=== PATIENT | male | born 1965 | race Caucasian/White ===

== ENCOUNTER → 2017-02-16 | Outpatient (CLI) | payer OTHER | END | disposition home or self-care (01) | LOC: RADMRIMAIN 12:26 | PROVIDERS: ATTEND Orthopaedic Surgery | DX: Z53.9 Procedure and treatment not carried out, unspecified reason (principal); M25.552 Pain in left hip ==

== ENCOUNTER → 2017-07-26 | Outpatient (CLI) | payer OTHER ==
--- NOTE | 2017-07-26 19:50 | CONS ---
CONSULTATION DATE OF CONSULTATION: 07/26/2017 52-year-old gentleman has been evaluated in the sleep center for obstructive sleep apnea-hypopnea syndrome. HISTORY OF PRESENT ILLNESS SLEEP WAKE EVALUATION: Patient has been diagnosed with obstructive sleep apnea about 15 years ago. He was on treatment with BiPAP for several years, but then was not able to use it because the machine was noisy and his did not like it. SLEEP SCHEDULE: At the present time, his sleep schedule from around 9 to 10 pm until 6:30 or 7 am on working days and until 7:00 am on weekends. FALLING ASLEEP: He does have problem with falling asleep, although no TV in bedroom. DURING SLEEP: He snores and wakes up from sleep three times with 2 episodes of nocturia. Occasionally has dry mouth, restless legs. DURING THE DAY/SLEEP WAKE: In the morning, he wakes up tired, has difficulties paying attention, falling asleep during the day, has problems with memory, concentration, irritability, depression, claustrophobia, sexual dysfunction. [place] Sleepiness Scale is 9. PAST MEDICAL HISTORY: Positive for hypertension, hyperlipidemia. PAST SURGICAL HISTORY: Right index surgery in 1974. MEDICATIONS: 1. Amlodipine. 2. Losartan. 3. Metoprolol. 4. Some vitamin supplement. SOCIAL HISTORY: Negative for smoking. Alcohol consumption 1-2 beers per night. FAMILY HISTORY: Hypertension, heart problems, hyperlipidemia, arthritis, sleep apnea, snoring. REVIEW OF SYSTEMS: Awakenings from sleep, sleepiness during the day, snoring. PHYSICAL EXAM: A gentleman without distress. BP 179/73, HR 84, RR 16, height 6 foot and 3 inches, weight 303, BMI 37.8, oxygen saturation on room air 97%, temperature 98.0. Neck 18 inches in circumference. Evaluation of oropharynx showed tongue protrudes midline; moderately to extremely low position of soft palate. Short distance between soft palate and posterior pharyngeal wall. Restriction of nasal breathing bilaterally. Neck Supple, no JVD. Thyroid is not palpable. LUNGS Clear to percussion and to auscultation. Good air exchange. No wheezing or rhonchi. HEART S1, S2 regular. No murmurs, gallops, or rubs. ABDOMEN is slightly obese. Soft and nontender. Bowel sounds are present. No organomegaly appreciated. EXTREMITIES No clubbing or cyanosis. NEUROSURGERY SPINE PHYSICIAN Awake, alert, and oriented X3. Cranial nerves 2 to 7 intact. There is no fasciculation or atrophy. noted. No focal deficits observed. IMPRESSION: 1. History of obstructive sleep apnea-hypopnea syndrome diagnosed about 15 years ago. At the present time, patient continued to wake up from sleep and feels sleepy during the day. [place] Sleepiness Scale 9, but this is with significant amount of usage Caffeine. Extremely low position of soft palate. Obesity. Obstructive sleep apnea-hypopnea syndrome. 2. Obesity BMI 37.8. 3. Hypertension. 4. Hyperlipidemia. 5. Status post right index surgery in the past. 6. Alcohol consumption 2 beers per night. PLAN: 1. Polysomnography for evaluation of patient's breathing during sleep. 2. CPAP/BiPAP titration if sleep study confirms obstructive sleep apnea-hypopnea syndrome. 3. Preferable position during sleep on the side. 4. No driving if patient feels any sleepiness. Patient is aware of civil and criminal liability for unsafe driving. 5. I will see patient for follow up visit to explain results of testing and following plan. Thank you very much for referring this patient for consultation. Sincerely, Prashant Cerda MD, PhD, FAASM Diplomat of [place] [employer] [place] [employer] Operator of [facility] Christine MMODL / EZEKIELN: [id number] /
== END | disposition home or self-care (01) ==
LOC: SLEEP 14:03
PROVIDERS: ATTEND Internal Medicine
DX: G47.33 Obstructive sleep apnea (adult) (pediatric) (principal); E66.9 Obesity, unspecified; Z68.37 Body mass index [BMI] 37.0-37.9, adult; I10 Essential (primary) hypertension; E78.5 Hyperlipidemia, unspecified; Z98.890 Other specified postprocedural states; Z79.899 Other long term (current) drug therapy
CPT/HCPCS: 99211

== ENCOUNTER 2019-02-17 15:50 | Emergency (ER) | payer BC ==
[2019-02-17 15:58] VITALS: RESP 18
--- NOTE | 2019-02-17 16:22 | ED ---
General Adult HPI - General Chief complaint: Back Pain/Injury Stated complaint: Kidney stones Time Seen by Provider: 02/17/19 15:59 Source: patient Mode of arrival: ambulatory Limitations: no limitations - History of Present Illness Initial comments: Dictation was produced using [employer] dictation software. please excuse any grammatical, word or spelling errors. Chief Complaint: 53-year-old male with past medical history of hypertension and nephrolithiasis presents with left-sided flank pain. History of Present Illness: A 3-year-old male who has a history of nephrolithiasis. Patient states he's had 24 hours of left-sided flank pain. 2 years ago patient had a similar episode while he was in [place]. Patient travels for work. He had a CT showing 3 mm left-sided kidney stone. Patient reports that his symptoms lasted for 24 hours until the stone is passed. States today that he came to the emergency Department visits been 24 hours of him having this pain. Patient states the pain is constant sharp and located to the left flank. He does report intermittent episodes of increased intensity. Patient denies any hematuria. Denies any constitutional symptoms. Patient has had above symptoms of nausea vomiting diarrhea. The ROS documented in this emergency department record has been reviewed and confirmed by me. Those systems with pertinent positive or negative responses have been documented in the HPI. All other systems are other negative and/or noncontributory. PHYSICAL EXAM: General Impression: Alert and oriented x3, not in acute distress HEENT: Normocephalic atraumatic, extra-ocular movements intact, pupils equal and reactive to light bilaterally, mucous membranes moist. Cardiovascular: Heart regular rate and rhythm, S1&S2 audible, no murmurs, rubs or gallops Chest: Lungs clear to auscultation bilaterally, no rhonchi, no wheeze, no rales Abdomen: Bowel sounds present, abdomen soft, non-tender, non-distended, no organomegaly Musculoskeletal: Pulses present and equal in all extremities, no peripheral edema, no CVA tenderness Motor: no focal deficits noted Neurological: CN II-XII grossly intact, no focal motor or sensory deficits noted Skin: Intact with no visualized rashes Psych: Normal affect and mood ED course: 53-year-old male presents with left-sided flank pain. He reports that his symptoms are similar to her kidney stones he was diagnosed with 2 years ago. Vital signs upon arrival shows heart rate of 101, worse vital signs within acceptable limits. Patient is well-appearing and physical examination is unremarkable.Laboratory evaluation obtained. Mild leukocytosis of 11.3 likely secondary to stress. Metabolic panel shows potassium 5.4 with hemolysis. Rest of metabolic panel is unremarkable. Patient does have some slight elevation in his creatinine. Urinalysis is unremarkable. Abdominal and bladder ultrasound was obtained showing mild left-sided hydronephrosis possible 8 mm nonobstructing calculus. Patient given fluids and intravenous analgesics. Patient states that his pain is. But manageable. Patient otherwise clear for discharge. He is told to follow up with urology. Patient given urology referral information. Patient given by mouth analgesics. Advised to follow-up with urology. Return parameters discussed. - Related Data Home Medications Medication Instructions Recorded Confirmed Docusate [Colace] 200 mg PO DAILY 02/17/19 02/17/19 Hempworks 20 drops PO BID 02/17/19 02/17/19 Keto Bhb 2 tab PO HS 02/17/19 02/17/19 Keto Oil 1 tab PO HS 02/17/19 02/17/19 Losartan Potassium 100 mg PO HS 02/17/19 02/17/19 Metoprolol Tartrate [Lopressor] 50 mg PO HS 02/17/19 02/17/19 Rexazyte 1 tab PO DAILY 02/17/19 02/17/19 amLODIPine BESYLATE/BENAZEPRIL 1 cap PO DAILY 02/17/19 02/17/19 [Lotrel 10-40 MG] Previous Rx's Medication Instructions Recorded HYDROcodone/APAP 5-325MG [[facility] 1 tab PO Q6HR PRN 3 Days #12 tab 02/17/19 5-325] Allergies Allergy/AdvReac Type Severity Reaction Status Date / Time bee venom protein (honey bee) Allergy Anaphylaxis Verified 02/17/19 16:25 fire ant Allergy Rash/Hives Verified 02/17/19 16:25 Review of Systems ROS Statement: Those systems with pertinent positive or pertinent negative responses have been documented in the HPI. ROS Other: All systems not noted in ROS Statement are negative. Past Medical History Past Medical History: Hypertension History of Any Multi-Drug Resistant Organisms: None Reported Past Surgical History: Orthopedic Surgery Past Psychological History: No Psychological Hx Reported Smoking Status: Former smoker Past Alcohol Use History: Occasional Past Drug Use History: None Reported General Exam Limitations: no limitations Course Vital Signs 02/17/19 15:56 Temperature 97.3 F L Pulse Rate 101 H Respiratory 18 Rate Blood Pressure 141/80 O2 Sat by Pulse 98 Oximetry Medical Decision Making - Lab Data Result diagrams: 02/17/19 16:57 02/17/19 17:20 Lab Results 02/17/19 02/17/19 02/17/19 Range/Units 16:57 16:57 17:20 WBC 11.3 H (3.8-10.6) k/uL RBC 4.98 (4.30-5.90) m/uL Hgb 13.8 (13.0-17.5) gm/dL Hct 42.0 (39.0-53.0) % MCV 84.4 (80.0-100.0) fL MCH 27.8 (25.0-35.0) pg MCHC 32.9 (31.0-37.0) g/dL RDW 14.6 (11.5-15.5) % Plt Count 294 (150-450) k/uL Neutrophils % 79 % Lymphocytes % 11 % Monocytes % 6 % Eosinophils % 1 % Basophils % 0 % Neutrophils # 9.0 H (1.3-7.7) k/uL Lymphocytes # 1.3 (1.0-4.8) k/uL Monocytes # 0.7 (0-1.0) k/uL Eosinophils # 0.2 (0-0.7) k/uL Basophils # 0.0 (0-0.2) k/uL Sodium 138 (137-145) mmol/L Potassium 5.4 H (3.5-5.1) mmol/L Chloride 105 (98-107) mmol/L Carbon Dioxide 24 (22-30) mmol/L Anion Gap 9 mmol/L BUN 18 (9-20) mg/dL Creatinine 1.74 H (0.66-1.25) mg/dL Est GFR (CKD-EPI)AfAm 50 (>60 ml/min/1.73 sqM) Est GFR (CKD-EPI)NonAf 44 (>60 ml/min/1.73 sqM) Glucose 96 (74-99) mg/dL Calcium 9.6 (8.4-10.2) mg/dL Total Bilirubin 0.8 (0.2-1.3) mg/dL AST 34 (17-59) U/L ALT 42 (21-72) U/L Alkaline Phosphatase 50 (38-126) U/L Total Protein 7.9 (6.3-8.2) g/dL Albumin 4.9 (3.5-5.0) g/dL Lipase 139 (23-300) U/L Urine Color Yellow Urine Appearance Clear (Clear) Urine pH 6.5 (5.0-8.0) Ur Specific [place] 1.026 (1.001-1.035) Urine Protein Trace H (Negative) Urine Glucose (UA) Negative (Negative) Urine Ketones Negative (Negative) Urine Blood Negative (Negative) Urine Nitrite Negative (Negative) Urine Bilirubin Negative (Negative) Urine Urobilinogen <2.0 (<2.0) mg/dL Ur Leukocyte Esterase Negative (Negative) Disposition Clinical Impression: Kidney stone Disposition: HOME SELF-CARE Condition: Good Instructions (If sedation given, give patient instructions): Kidney Stones (ED) Prescriptions: HYDROcodone/APAP 5-325MG [[facility] 5-325] 1 tab PO Q6HR PRN 3 Days #12 tab PRN Reason: Severe Pain Is patient prescribed a controlled substance at d/c from ED?: No Referrals: Brody Vale MD [STAFF PHYSICIAN] - 1-2 days Benoit Dey MD [STAFF PHYSICIAN] - 1-2 days Time of Disposition: 18:21
[2019-02-17] MEDS ORDERED: SODIUM CHLORIDE 0.9% 1,000 ML IV STA (16:23)
[2019-02-17] MEDS ORDERED: KETOROLAC 30 MG/ML 1 ML VIAL IVP STA (16:23)
[2019-02-17 17:07] LABS: Basophils % (A) 0 %; Eosinophils # (A) 0.2 k/uL (0-0.7); Eosinophils % (A) 1 %; HGB 13.8 gm/dL (13.0-17.5); Lymphocytes # (A) 1.3 k/uL (1.0-4.8); Lymphocytes % (A) 11 %; MCH 27.8 pg (25.0-35.0); MCHC 32.9 g/dL (31.0-37.0); MCV 84.4 fL (80.0-100.0); Mean Platelet Volume 7.4; Monocytes # (A) 0.7 k/uL (0-1.0); Monocytes % (A) 6 %; Neutrophils % (A) 79 %; Platelet Count 294 k/uL (150-450); RBC 4.98 m/uL (4.30-5.90); RDW 14.6 % (11.5-15.5); WBC 11.3 k/uL (3.8-10.6)
[2019-02-17 17:08] LABS: Appearance,Urine Clear (Clear); Bilirubin,Urine Negative (Negative); Blood,Urine Negative (Negative); Color,Urine Yellow; Glucose,Urine (UA) Negative (Negative); Ketones,Urine Negative (Negative); Leukocyte Esterase,Urine Negative (Negative); Nitrite,Urine Negative (Negative); PH, Urine 6.5 (5.0-8.0); Protein,Urine Trace (Negative); Specific Gravity,Urine 1.026 (1.001-1.035); Urobilinogen,Urine <2.0 mg/dL (<2.0)
[2019-02-17 17:40] LABS: Albumin 4.9 g/dL (3.5-5.0); Calcium 9.6 mg/dL (8.4-10.2); Total Bilirubin 0.8 mg/dL (0.2-1.3); Total Protein 7.9 g/dL (6.3-8.2)
[2019-02-17 17:41] LABS: Potassium 5.4 mmol/L (3.5-5.1)
--- NOTE | 2019-02-17 17:58 | US ---
EXAMINATION TYPE: US kidneys/renal and bladder DATE OF EXAM: 02/17/2019 COMPARISON: NONE CLINICAL HISTORY: Pain. EXAM MEASUREMENTS: Right Kidney: 11.1 x 5. 5 x 5.7 cm Left Kidney: 11.9 x 6.3 x 5.9 cm Right Kidney: echogenic foci, ?small stone measuring 0.3 cm, no hydro Left Kidney: 0.8 x 0.6 x 0.8cm stone seen with mild hydro Bladder: wnl There is mild left-sided pyelocaliectasis. At mid pole level there is 8 mm shadowing hyperechoic focu s suspicious for calculus. No masses are identified in left kidney on images saved. The urinary denis dder is not greatly distended. Bilateral ureteral jets are not seen. No hydronephrosis in right kidn ey is evident. IMPRESSION: Mild left-sided hydronephrosis with possible additional 8 mm nonobstructing calculus. Suspect obstruc ting left ureter calculus. Correlate clinically.
--- NOTE | 2019-02-17 18:23 | ED ---
Medical Decision Making - Lab Data Result diagrams: 02/17/19 16:57 02/17/19 17:20 Lab Results 02/17/19 02/17/19 02/17/19 Range/Units 16:57 16:57 17:20 WBC 11.3 H (3.8-10.6) k/uL RBC 4.98 (4.30-5.90) m/uL Hgb 13.8 (13.0-17.5) gm/dL Hct 42.0 (39.0-53.0) % MCV 84.4 (80.0-100.0) fL MCH 27.8 (25.0-35.0) pg MCHC 32.9 (31.0-37.0) g/dL RDW 14.6 (11.5-15.5) % Plt Count 294 (150-450) k/uL Neutrophils % 79 % Lymphocytes % 11 % Monocytes % 6 % Eosinophils % 1 % Basophils % 0 % Neutrophils # 9.0 H (1.3-7.7) k/uL Lymphocytes # 1.3 (1.0-4.8) k/uL Monocytes # 0.7 (0-1.0) k/uL Eosinophils # 0.2 (0-0.7) k/uL Basophils # 0.0 (0-0.2) k/uL Sodium 138 (137-145) mmol/L Potassium 5.4 H (3.5-5.1) mmol/L Chloride 105 (98-107) mmol/L Carbon Dioxide 24 (22-30) mmol/L Anion Gap 9 mmol/L BUN 18 (9-20) mg/dL Creatinine 1.74 H (0.66-1.25) mg/dL Est GFR (CKD-EPI)AfAm 50 (>60 ml/min/1.73 sqM) Est GFR (CKD-EPI)NonAf 44 (>60 ml/min/1.73 sqM) Glucose 96 (74-99) mg/dL Calcium 9.6 (8.4-10.2) mg/dL Total Bilirubin 0.8 (0.2-1.3) mg/dL AST 34 (17-59) U/L ALT 42 (21-72) U/L Alkaline Phosphatase 50 (38-126) U/L Total Protein 7.9 (6.3-8.2) g/dL Albumin 4.9 (3.5-5.0) g/dL Lipase 139 (23-300) U/L Urine Color Yellow Urine Appearance Clear (Clear) Urine pH 6.5 (5.0-8.0) Ur Specific [place] 1.026 (1.001-1.035) Urine Protein Trace H (Negative) Urine Glucose (UA) Negative (Negative) Urine Ketones Negative (Negative) Urine Blood Negative (Negative) Urine Nitrite Negative (Negative) Urine Bilirubin Negative (Negative) Urine Urobilinogen <2.0 (<2.0) mg/dL Ur Leukocyte Esterase Negative (Negative) Disposition Clinical Impression: Kidney stone Disposition: HOME SELF-CARE Condition: Good Instructions (If sedation given, give patient instructions): Kidney Stones (ED) Prescriptions: Naproxen [Naprosyn] 500 mg PO Q12HR PRN #20 tab PRN Reason: Pain HYDROcodone/APAP 5-325MG [[place] 5-325] 1 tab PO Q6HR PRN 3 Days #12 tab PRN Reason: Severe Pain Is patient prescribed a controlled substance at d/c from ED?: Yes If prescribed controlled substance>3 days was MAPS reviewed?: Prescribed <3 Days Referrals: Brody Vale MD [STAFF PHYSICIAN] - 1-2 days Benoit Dey MD [STAFF PHYSICIAN] - 1-2 days Time of Disposition: 18:23
[2019-02-17 18:36] VITALS: BP 168/93; PULSE 93; TEMP 98.1
== END 2019-02-17 18:34 | disposition home or self-care (01) ==
LOC: EC 15:50
DX: N13.2 Hydronephrosis with renal and ureteral calculous obstruction (principal); I10 Essential (primary) hypertension; Z87.891 Personal history of nicotine dependence; Z79.899 Other long term (current) drug therapy; Z91.030 Bee allergy status; Z91.048 Other nonmedicinal substance allergy status
CPT/HCPCS: 36415; 80053; 83690; 85025; 81003; 76770; 99284; 96374; 96361; J1885

== ENCOUNTER 2019-05-09 10:57 | Inpatient (IN) | payer BC ==
[2019-05-09] MEDS ORDERED: NITROGLYCERIN SL TABS 0.4 MG TAB SUBLINGUAL STA ×2 (11:14→11:23)
[2019-05-09] MEDS ORDERED: HEPARIN SODIUM,PORCINE 5,000 UNIT/ML 1 ML VIAL IV STA (11:14)
[2019-05-09] MEDS ORDERED: ASPIRIN 81 MG PO STA (11:14)
[2019-05-09] MEDS ORDERED: ATORVASTATIN 80 MG TAB PO STA (11:17)
[2019-05-09] MEDS ORDERED: LIDOCAINE 1% INJ 10MG/ML (20 ML MDV) ONE (11:22)
[2019-05-09 11:31] LABS: HCT 41.2 % (39.0-53.0); HGB 13.7 gm/dL (13.0-17.5); MCH 27.4 pg (25.0-35.0); MCHC 33.3 g/dL (31.0-37.0); MCV 82.3 fL (80.0-100.0); Mean Platelet Volume 6.6; Platelet Count 324 k/uL (150-450); RDW 14.8 % (11.5-15.5)
[2019-05-09 11:35] LABS: ALT 38 U/L (21-72); AST 39 U/L (17-59); African American GFR (CKD) >90 (>60 ml/min/1.73 sqM); Albumin 5.2 g/dL (3.5-5.0); Alkaline Phosphatase 66 U/L (38-126); Anion Gap 14 mmol/L; Blood Urea Nitrogen 15 mg/dL (9-20); Calcium 10.4 mg/dL (8.4-10.2); Carbon Dioxide 22 mmol/L (22-30); Chloride 105 mmol/L (98-107); Glucose 104 mg/dL (74-99); Magnesium 2.5 mg/dL (1.6-2.3); Potassium 3.7 mmol/L (3.5-5.1); Sodium 141 mmol/L (137-145); Total Bilirubin 0.6 mg/dL (0.2-1.3); Total Protein 8.1 g/dL (6.3-8.2)
--- NOTE | 2019-05-09 11:35 | ED ---
Chest Pain HPI - General Chief Complaint: Chest Pain Stated Complaint: SOB, Chest Pain Time Seen by Provider: 05/09/19 11:00 Source: patient, RN notes reviewed Mode of arrival: ambulatory Limitations: no limitations - History of Present Illness Initial Comments: This is a 53-year-old male with a history of hypertension was a nonsmoker no personal history of heart or lung disease who about 1 hour prior to admission started developing midsternal 8/10 chest pain it was achy in nature associated with diaphoresis. He has no prior history of chest pain is a family history is noted. No nausea no vomiting no other modifying factors at this time MD Complaint: chest pain - Related Data Home Medications Medication Instructions Recorded Confirmed Losartan Potassium 100 mg PO HS 02/17/19 05/09/19 Metoprolol Tartrate [Lopressor] 50 mg PO HS 02/17/19 05/09/19 amLODIPine BESYLATE/BENAZEPRIL 1 cap PO DAILY 02/17/19 05/09/19 [Lotrel 10-40 MG] Allergies Allergy/AdvReac Type Severity Reaction Status Date / Time bee venom protein (honey bee) Allergy Anaphylaxis Verified 05/09/19 11:20 fire ant Allergy Rash/Hives Verified 05/09/19 11:20 Review of Systems ROS Statement: Those systems with pertinent positive or pertinent negative responses have been documented in the HPI. ROS Other: All systems not noted in ROS Statement are negative. EKG Findings - EKG Results: EKG: interpreted by HEIKE, sinus rhythm (EKG was done upon arrival showed a normal sinus rhythm 85 appear interval 148 QRS duration 84 QT since QTC 396/[address] elevation in leads V3 V4 V5 extending into V6) Past Medical History Past Medical History: Hypertension History of Any Multi-Drug Resistant Organisms: None Reported Past Surgical History: Orthopedic Surgery Past Psychological History: No Psychological Hx Reported Smoking Status: Never smoker Past Alcohol Use History: Occasional Past Drug Use History: None Reported General Exam - General Exam Comments Initial Comments: This is a well-developed well-nourished awake alert oriented 3 male Limitations: no limitations General appearance: alert, anxious, in distress Head exam: Present: atraumatic, normocephalic, normal inspection Eye exam: Present: normal appearance, PERRL, EOMI. Absent: scleral icterus, conjunctival injection, periorbital swelling ENT exam: Present: normal exam, mucous membranes moist Neck exam: Present: normal inspection. Absent: tenderness, meningismus, lymphadenopathy Respiratory exam: Present: normal lung sounds bilaterally. Absent: respiratory distress, wheezes, rales, rhonchi, stridor Cardiovascular Exam: Present: regular rate, normal rhythm, normal heart sounds. Absent: systolic murmur, diastolic murmur, rubs, gallop, clicks GI/Abdominal exam: Present: soft, normal bowel sounds. Absent: distended, tenderness, guarding, rebound, rigid Rectal exam: Present: deferred Extremities exam: Present: normal inspection, full ROM, normal capillary refill, other (Equal pulses bilaterally to the radial pulses and posterior tibial). Absent: tenderness, pedal edema, joint swelling, calf tenderness Back exam: Present: normal inspection Neurological exam: Present: alert, oriented X3, CN II-XII intact Psychiatric exam: Present: normal affect, normal mood, anxious Skin exam: Present: warm, intact, normal color, diaphoretic. Absent: rash Course Vital Signs 05/09/19 11:03 Temperature 98.7 F Pulse Rate 86 Respiratory 18 Rate Blood Pressure 168/115 O2 Sat by Pulse 100 Oximetry - Reevaluation(s) Reevaluation #1: 05/09/19 11:31 A STEMI alert was initiated. Dr. Jimenez and Dr. Salomon did come to the emergency department and examined patient. Patient was evaluated and taken to the [facility]. Reevaluation #2: 05/09/19 11:33 I did discuss the findings and the evaluation with the patient's was present she is informed of the [facility] the procedure to be done. Chest Pain MDM - MDM X-ray was done the patient to the emergency department nonspecific findings. Agent was taken to the [facility]. I did discuss case with Dr. Taylor who is covering for Dr. Simons. Critical Care Time Critical Care Time: Yes Critical Care Time: 31 minutes of critical care time includes initial presentation with history physical labs x-rays EKGs discussed with the cardiology who did come the emergency department. Discussed with the patient's review of old charting was available documentation the above discussion with the admitting physician. Disposition Clinical Impression: ST elevation myocardial infarction (STEMI), Chest pain Disposition: ADMITTED IP TO THIS HOSP Condition: Critical Referrals: Mike Siegel DO [Primary Care Provider] - 1-2 days
[2019-05-09] MEDS ORDERED: SODIUM CHLORIDE 0.9% 1,000 ML IV ONE (11:37)
[2019-05-09] MEDS ORDERED: NITROGLYCERIN SL TABS 0.4 MG TAB SUBLINGUAL ONE ×2 (11:43→11:44)
[2019-05-09] MEDS ORDERED: MIDAZOLAM (PF) 2 MG/2 ML VIAL IV ONE (11:44)
[2019-05-09] MEDS ORDERED: LIDOCAINE 1% INJ 10MG/ML (20 ML MDV) SQ ONE (11:46)
[2019-05-09] MEDS ORDERED: fentaNYL (PF) 50 MCG/ML 2 ML AMP ONE (11:50)
--- NOTE | 2019-05-09 11:50 | P.CRDCN ---
History of Present Illness Consult date: 05/09/19 Requesting physician: Mike Siegel Consult reason: chest pain Chief complaint: Chest pain History of present illness: His is a 53-year-old gentleman with history of hypertension, sleep apnea, nondiabetic, not a smoker, presented to the emergency room with symptoms of midsternal chest pressure and heaviness which she stated started approximately an hour before coming to the ER. Patient was quite diaphoretic ordered. According to the patient, he did have one episode of chest discomfort the night prior that seemed to last 10-15 minutes and dissipated. EKG on presentation to the emergency room showed a normal sinus rhythm with ST elevation/jpoint elevation noted in V3 to V6. Chest x-ray performed in the emergency room, results are pending. Blood pressure on arrival 168/115 with a heart rate in the 80s on room air, temperature 98.7. White blood cell count is normal, hemoglobin 13.7, platelet count 324. Sodium 141, potassium 3.7, BUN 15 and creatinine 1.0. Magnesium 2.5. Patient continued to have chest pain in the emergency room, he was given 2 sublingual nitroglycerin tablets, aspirin, Lipitor, and a 4000 bolus of heparin. Patient was advised to go directly to the cardiac catheterization lab to undergo an emergent cardiac catheterization. The risks and benefits were explained to the patient in detail. Past Medical History Past Medical History: Hypertension History of Any Multi-Drug Resistant Organisms: None Reported Past Surgical History: Orthopedic Surgery Past Psychological History: No Psychological Hx Reported Smoking Status: Never smoker Past Alcohol Use History: Occasional Past Drug Use History: None Reported Medications and Allergies Home Medications Medication Instructions Recorded Confirmed Type Losartan Potassium 100 mg PO HS 02/17/19 05/09/19 History Metoprolol Tartrate [Lopressor] 50 mg PO HS 02/17/19 05/09/19 History amLODIPine BESYLATE/BENAZEPRIL 1 cap PO DAILY 02/17/19 05/09/19 History [Lotrel 10-40 MG] Allergies Allergy/AdvReac Type Severity Reaction Status Date / Time bee venom protein (honey bee) Allergy Anaphylaxis Verified 05/09/19 11:20 fire ant Allergy Rash/Hives Verified 05/09/19 11:20 Physical Exam Vitals: Vital Signs Temp Pulse Resp BP Pulse Ox 05/09/19 11:03 98.7 F 86 18 168/115 100 Intake and Output 07/18/19 07/19/19 07/19/19 22:59 06:59 14:59 Other: Weight 136.078 kg PHYSICAL EXAMINATION: GENERAL: 43-year-old gentleman complaining of midsternal chest pressure and heaviness, diaphoretic at the time of my examination HEENT: Head is atraumatic, normocephalic. Pupils equal, round. Sclera anicteric. Conjunctiva are clear. Mucous membranes of the mouth are moist. Neck is supple. There is no elevated jugular venous pressure. No carotid bruit is heard. HEART EXAMINATION: Heart S1, S2 normal. No murmur or gallop heard. CHEST EXAMINATION: Lungs are clear to auscultation and precussion. No chest wall tenderness is noted on palpation or with deep breathing. ABDOMEN: Soft, nontender. Bowel sounds are heard. No organomegaly noted. EXTREMITIES: 2+ peripheral pulses with no evidence of peripheral edema and no calf tenderness noted. NEUROLOGIC patient is awake, alert and oriented 3 . . Results 05/09/19 11:19 05/09/19 11: Cardiac Enzymes 05/09/19 Range/Units 11: AST 39 (17-59) U/L CBC 05/09/19 Range/Units 11:19 WBC 7.0 (3.8-10.6) k/uL RBC 5.00 (4.30-5.90) m/uL Hgb 13.7 (13.0-17.5) gm/dL Hct 41.2 (39.0-53.0) % Plt Count 324 (150-450) k/uL Comprehensive Metabolic Panel 05/09/19 Range/Units 11:19 Sodium 141 (137-145) mmol/L Potassium 3.7 (3.5-5.1) mmol/L Chloride 105 (98-107) mmol/L Carbon Dioxide 22 (22-30) mmol/L BUN 15 (9-20) mg/dL Creatinine 1.02 (0.66-1.25) mg/dL Glucose 104 H (74-99) mg/dL Calcium 10.4 H (8.4-10.2) mg/dL AST 39 (17-59) U/L ALT 38 (21-72) U/L Alkaline Phosphatase 66 (38-126) U/L Total Protein 8.1 (6.3-8.2) g/dL Albumin 5.2 H (3.5-5.0) g/dL Intake and Output 05/08/19 05/09/19 05/09/19 22:59 06:59 14:59 Other: Weight 136.078 kg Patient Weight 05/10/19 06:59 Weight 136.078 kg 05/09/19 11:19 05/09/19 11:19 EKG Interpretations (text) EKG shows normal sinus rhythm with ST elevation noted in the anterior lateral leads. Assessment and Plan Plan: Assessment and plan #[address] elevation myocardial infarction #2 hypertension #3 sleep apnea Plan Patient was advised to go emergently to the cardiac catheterization lab, as and benefits were explained to the patient in detail, further recommendations will be based on these findings and the patient's clinical course. DNP note has been reviewed, I agree with a documented findings and plan of care. Patient was seen and examined.
[2019-05-09 11:51] LABS: Lymphocytes # (M) 2.31 k/uL (1.0-4.8); Monocytes # (M) 0.56 k/uL (0-1.0); Neutrophils # (M) 4.13 k/uL (1.3-7.7); Neutrophils % (M) 59 %; Nucleated Red Blood Cells 0 /100 WBC (0-0); Total Cells Counted 100
[2019-05-09] MEDS ORDERED: fentaNYL (PF) 50 MCG/ML 2 ML AMP IV ONE (11:52)
[2019-05-09 11:54] LABS: D-Dimer 0.36 mg/L FEU (<0.60); INR 0.9 (<1.2); Partial Thromboplastin Time 24.4 sec (22.0-30.0); Prothrombin Time 9.6 sec (9.0-12.0)
[2019-05-09] MEDS ORDERED: BIVALIRUDIN 250 MG in SODIUM CHLORIDE 0.9% 50 ML IV ONE ×2 (11:57→12:25)
[2019-05-09] MEDS ORDERED: BIVALIRUDIN BOLUS 250 MG/50 ML IV ONE (11:57)
--- NOTE | 2019-05-09 11:58 | XR ---
EXAMINATION TYPE: XR chest 1V portable DATE OF EXAM: 05/09/2019 COMPARISON: NONE HISTORY: Chest pain TECHNIQUE: Single frontal view of the chest is obtained. FINDINGS: There are overlying cardiac leads. Right hemidiaphragm is elevated. Patient is rotated. Th ere is no focal air space opacity, pleural effusion, or pneumothorax seen. The cardiac silhouette si ze is within normal limits. The osseous structures are intact. IMPRESSION: Suspect some elevation of the right hemidiaphragm, rotated exam. Follow-up as indicated.
[2019-05-09] MEDS ORDERED: NITROGLYCERIN 1000MCG/10ML SYRINGE INTRACORON ONE (12:04)
[2019-05-09 12:06] LABS: Creatine Kinase MB 7.6 ng/mL (0.0-2.4)
[2019-05-09] MEDS ORDERED: IOPAMIDOL-370 100ML BTL INJ ONE ×2 (12:06→12:29)
[2019-05-09 12:13] LABS: Troponin I 0.641 ng/mL (0.000-0.034)
[2019-05-09] MEDS ORDERED: niCARdipine Syringe (1,000 mcg/10 mL) INTRACORON ONE (12:13)
[2019-05-09] MEDS ORDERED: PRASUGREL 10 MG TAB ONE (12:35)
[2019-05-09] MEDS ORDERED: PRASUGREL 10 MG TAB PO ONE (12:39)
[2019-05-09] MEDS ORDERED: IOPAMIDOL-370 50ML BTL INJ ONE (12:44)
[2019-05-09] MEDS ORDERED: NITROGLYCERIN SL TABS 0.4 MG TAB SUBLINGUAL PRN (12:57)
[2019-05-09] MEDS ORDERED: ZOLPIDEM 5 MG TAB PO PRN (12:57)
[2019-05-09] MEDS ORDERED: RX INFO: IV CONTRAST WAS GIVEN 1 EACH MISC MISCELLANE PRN (12:57)
[2019-05-09] MEDS ORDERED: MAG HYDROX/AL HYDROX/SIMETH 30 ML CUP PO PRN (12:57)
[2019-05-09] MEDS ORDERED: ATROPINE SULFATE 0.1 MG/ML 10ML SYRINGE IV PRN (12:57)
[2019-05-09] MEDS: SODIUM CHLORIDE 0.9% 1,000 ML IV SCH (13:15)
[2019-05-09 13:31] LABS: Glucose,Whole Blood 113 mg/dL (75-99)
--- NOTE | 2019-05-09 13:47 | CC ---
CARDIAC CATHETERIZATION REPORT DATE OF SERVICE: 05/09/2019. PROCEDURE: 1. Left heart catheterization and coronary angiography. 2. PTCA and stenting of mid LAD with a drug-eluting stent performed in the setting of an acute myocardial infarction with ST elevation. Reperfusion accomplished in 65 minutes. PERFORMED BY: Dr. Alma Delia Palma. Moderate conscious sedation time was 55 minutes. The patient was administered Versed and fentanyl. His oxygen saturation, hemodynamics and EKG were monitored closely. CLINICAL INFORMATION: Mr. Bob Silva is a 53-year-old gentleman with known history of hypertension who sees Dr. Siegel in the outpatient setting. He presented to the hospital with chest pain, was seen and evaluated by Dr. Daniela Jimenez and Dr. Salomon. He had anterior ST elevation and also with inferior ST prominence. He was advised prompt cardiac catheterization and was brought to the cardiac laboratory courier expeditiously. PROCEDURE NOTE: Under local anesthesia and strict aseptic precautions, a 6-Estonian introducer was placed in the right femoral artery. I started off with a left Shawn catheter and noted that the patient had a significant mid LAD lesion with thrombus and sluggish flow in the distal LAD. I recommended intervention and proceeded to perform the PCI of LAD immediately. Following the LAD PCI, I checked the right coronary artery angiography and also LV pressures but did not perform LV gram. The sheath was taken out and Angio- Seal device used to secure hemostasis. The patient had discomfort in the groin after the Angio-Seal procedure, but that resolved quickly. Procedure was performed uneventfully. He tolerated the procedure well. Results were discussed with the patient and family. CARDIAC CATHETERIZATION FINDINGS: The left ventricular end-diastolic pressure was about 15 mmHg without any gradient across aortic valve. CORONARY ANGIOGRAPHY FINDINGS: RIGHT CORONARY ARTERY: This is a codominant vessel, has diffuse minor irregularities. No significant disease distally. It bifurcates into a PDA and PLV. PLV is smaller. PDA is larger. There is about a 30% to 40% narrowing involving the PDA branch as it comes off from the main RCA. Minor irregularities in the PLV system noted. LEFT MAIN CORONARY ARTERY: Short patent disease-free vessel that immediately bifurcates into LAD and circumflex. Left main has no significant disease. LEFT ANTERIOR DESCENDING CORONARY ARTERY: Good caliber vessel gives off a septal and diagonal branch. After the diagonal and septal branch, there is an eccentric 70% stenosis with haziness suggestive of thrombus. Beyond this, there is another area of narrowing and then the flow stops in the midportion without much antegrade flow and the entire vessel seems to be filled with thrombus. LEFT POSTERIOR CIRCUMFLEX CORONARY ARTERY: Technically a codominant vessel gives off a large obtuse marginal that runs laterally and then the distal circumflex continues as a posterolateral branch after giving off a left atrial circumflex branches. There are minor irregularities. No significant disease in the circumflex system. LEFT VENTRICULOGRAM: Left ventriculogram was not performed. FINAL IMPRESSION: This patient has a significant disease in the LAD with 2 areas of significant disease in the mid LAD and sluggish flow without much antegrade flow in the distal portion of the LAD which is the culprit vessel. IMPRESSION: 1. Left anterior descending artery has 2 areas of significant disease without much distal flow and a lot of thrombus with sluggish flow. 2. Circumflex and RCA are codominant vessels with minor diffuse disease. PDA branch of RCA has about a 40% narrowing. Circumflex has minor irregularities. Filling pressures are slightly elevated and there was no gradient across aortic valve. RECOMMENDATIONS: I recommended PCI of LAD and proceeded to perform this in the same setting. PCI PROCEDURE DETAILS: A standard left Shawn guide catheter was used to cannulate the left coronary artery. A run-through wire was used to cross the lesion. A 3.0 caliber Trek balloon of 12 mm length was used to pre-dilate the lesion. I then deployed an 18 mm long 3.5 caliber Xience stent in the mid lesion. The proximal portion of the lesion just after the diagonal branch was still evident, not covered by the initial stent. I therefore deployed another 3.5 caliber 8 mm stent and telescoped this into the previous stent. Excellent angiographic result was achieved. Distally, there was still some disease in the distal 1/4 of the LAD. I addressed this with a 2.25 caliber 12 mm Trek balloon and gave multiple inflations. The entire LAD opened with a good JOSÉ ANTONIO-3 flow. Excellent angiographic result was achieved, but the distal LAD appears to be diffusely diseased throughout, but the flow is still well preserved and there is no significant stenosis distally after opening it up with the balloon. There is diffuse disease in the distal half of the LAD, but the stented areas were widely patent with excellent angiographic result. The patient received 60 mg of Effient. Angiomax bolus and infusion were given as per protocol. Excellent angiographic result without complication was achieved and patient was sent to the room in a stable condition. Findings and results were discussed with the patient and family. ANEESH / EMILIANA: [id number] /
--- NOTE | 2019-05-09 14:25 | P.CRDCN ---
History of Present Illness History of present illness: Please see full dictation by nurse practitioner Patient presented with midsternal chest discomfort for about an hour prior to presentation Distantly uncomfortable and having ongoing pain ST elevation that looked like a J-point elevation from V32 V6 with very typical symptoms Likely mid LAD stenosis/occlusion History of hypertension, obesity, sleep apnea, Nondiabetic never smoker Plan Medical treatment and urgent coronary angiography today for acute ST elevation PR Past Medical History Past Medical History: Hypertension History of Any Multi-Drug Resistant Organisms: None Reported Past Surgical History: Orthopedic Surgery Past Psychological History: No Psychological Hx Reported Smoking Status: Never smoker Past Alcohol Use History: Occasional Past Drug Use History: None Reported Medications and Allergies Home Medications Medication Instructions Recorded Confirmed Type Losartan Potassium 100 mg PO HS 02/17/19 05/09/19 History Metoprolol Tartrate [Lopressor] 50 mg PO HS 02/17/19 05/09/19 History amLODIPine BESYLATE/BENAZEPRIL 1 cap PO DAILY 02/17/19 05/09/19 History [Lotrel 10-40 MG] Allergies Allergy/AdvReac Type Severity Reaction Status Date / Time bee venom protein (honey bee) Allergy Anaphylaxis Verified 05/09/19 11:20 fire ant Allergy Rash/Hives Verified 05/09/19 11:20 Physical Exam Vitals: Vital Signs Temp Pulse Resp BP Pulse Ox 05/09/19 14:00 77 16 134/81 97 05/09/19 13:45 79 12 125/77 97 05/09/19 13:30 75 14 121/74 97 05/09/19 13:15 80 16 131/74 96 05/09/19 13:05 98.1 F 86 16 131/74 98 05/09/19 11:03 98.7 F 86 18 168/115 100 Intake and Output 05/08/19 05/09/19 05/09/19 22:59 06:59 14:59 Intake Total 663.1 Output Total 850 Balance -186.9 Intake: IV 513.1 Intake, IV Titration 150 Amount Sodium Chloride 0.9% 1, 150 000 ml @ 75 mls/hr IV . [id number] [facility] Rx#:[id number] Output: Urine 850 Other: Weight 136.078 kg Results 05/09/19 11:19 05/09/19 11:19 Cardiac Enzymes 05/09/19 05/09/19 Range/Units 11:19 11:19 AST 39 (17-59) U/L CK-MB (CK-2) 7.6 H (0.0-2.4) ng/mL Troponin I 0.641 H* (0.000-0.034) ng/mL Coagulation 05/09/19 Range/Units 11: PT 9.6 (9.0-12.0) sec APTT 24.4 (22.0-30.0) sec CBC 05/09/19 Range/Units 11: WBC 7.0 (3.8-10.6) k/uL RBC 5.00 (4.30-5.90) m/uL Hgb 13.7 (13.0-17.5) gm/dL Hct 41.2 (39.0-53.0) % Plt Count 324 (150-450) k/uL Comprehensive Metabolic Panel 05/09/19 Range/Units 11: Sodium 141 (137-145) mmol/L Potassium 3.7 (3.5-5.1) mmol/L Chloride 105 (98-107) mmol/L Carbon Dioxide 22 (22-30) mmol/L BUN 15 (9-20) mg/dL Creatinine 1.02 (0.66-1.25) mg/dL Glucose 104 H (74-99) mg/dL Calcium 10.4 H (8.4-10.2) mg/dL AST 39 (17-59) U/L ALT 38 (21-72) U/L Alkaline Phosphatase 66 (38-126) U/L Total Protein 8.1 (6.3-8.2) g/dL Albumin 5.2 H (3.5-5.0) g/dL Current Medications Generic Name Dose Route Start Last Admin Trade Name Freq PRN Reason Stop Dose Admin Al Hydroxide/Mg Hydroxide 30 ml 05/09/19 12:57 Maalox PO Q4HR PRN Heartburn Amlodipine Besylate 5 mg 05/09/19 21:00 Norvasc PO HS JESUS Aspirin 81 mg 05/10/19 09:00 Aspirin PO DAILY JESUS Atropine Sulfate 0.5 mg 05/09/19 12:57 Atropine IV ONCE PRN Symptomatic Bradycardia Sodium Chloride 1,000 mls @ 75 mls/hr 05/09/19 13:00 Saline 0.9% IV 05/10/19 13:01 .[id number] JESUS Losartan Potassium 100 mg 05/09/19 21:00 Cozaar PO HS JESUS Metoprolol Tartrate 50 mg 05/10/19 09:00 Lopressor PO DAILY JESUS Miscellaneous Information 1 each 05/09/19 12:57 Rx Info: Iv Contrast Was Given MISCELLANE 05/11/19 12:57 DAILY PRN Per Protocol Nitroglycerin 0.4 mg 05/09/19 12:57 Nitrostat SUBLINGUAL Q5M PRN Chest Pain Prasugrel 10 mg 05/10/19 09:00 Effient PO DAILY JESUS Zolpidem Tartrate 5 mg 05/09/19 12:57 Ambien PO HS PRN Insomnia Intake and Output 05/08/19 05/09/19 05/09/19 22:59 06:59 14:59 Intake Total 663.1 Output Total 850 Balance -186.9 Intake: IV 513.1 Intake, IV Titration 150 Amount Sodium Chloride 0.9% 1, 150 000 ml @ 75 mls/hr IV . [id number] [facility] Rx#:[id number] Output: Urine 850 Other: Weight 136.078 kg Patient Weight 05/10/19 06:59 Weight 136.078 kg 05/09/19 11:19 05/09/19 11:19
[2019-05-09 15:22] VITALS: BMI 36.5
[2019-05-09] MEDS: amLODIPine 5 MG TAB PO SCH (18:39)
[2019-05-09] MEDS: LOSARTAN 50 MG TAB PO SCH (18:40)
[2019-05-09] MEDS ORDERED: METOPROLOL TARTRATE 50 MG TAB PO SCH (21:00)
[2019-05-10 05:41] LABS: Basophils % (A) 0 %; Eosinophils # (A) 0.1 k/uL (0-0.7); Eosinophils % (A) 1 %; HCT 39.4 % (39.0-53.0); HGB 12.4 gm/dL (13.0-17.5); Hypochromasia Slight; Lymphocytes # (A) 1.5 k/uL (1.0-4.8); Lymphocytes % (A) 21 %; MCHC 31.6 g/dL (31.0-37.0); MCV 85.6 fL (80.0-100.0); Mean Platelet Volume 7.1; Monocytes # (A) 0.3 k/uL (0-1.0); Monocytes % (A) 5 %; Neutrophils # (A) 5.1 k/uL (1.3-7.7); Neutrophils % (A) 71 %; Platelet Count 277 k/uL (150-450); RDW 15.5 % (11.5-15.5); WBC 7.1 k/uL (3.8-10.6)
[2019-05-10 05:51] LABS: African American GFR (CKD) >90 (>60 ml/min/1.73 sqM); Anion Gap 10 mmol/L; Blood Urea Nitrogen 12 mg/dL (9-20); Calcium 8.9 mg/dL (8.4-10.2); Carbon Dioxide 21 mmol/L (22-30); Chloride 107 mmol/L (98-107); Glucose 122 mg/dL (74-99); Potassium 4.3 mmol/L (3.5-5.1); Sodium 138 mmol/L (137-145)
[2019-05-10] MEDS: SODIUM CHLORIDE 0.9% 1,000 ML IV SCH (06:17)
[2019-05-10] MEDS: METOPROLOL TARTRATE 50 MG TAB PO SCH (08:06)
[2019-05-10] MEDS: ASPIRIN 81 MG PO SCH (08:06)
[2019-05-10] MEDS: PRASUGREL 10 MG TAB PO SCH (08:07)
--- NOTE | 2019-05-10 13:01 | P.HPIM ---
History of Present Illness H&P Date: 05/10/19 Chief Complaint: Chest pain This is a 53-year-old male patient of Dr. Siegel with past medical history of hypertension, hyperlipidemia, possible sleep apnea. Patient gives history of having sleep study done 2 but has not received report. Patient presented to the hospital with midsternal chest pressure and heaviness that started hour before arrival along with diaphoresis. Onset while sitting and 8 type that did not go away. He also complains of left arm uncomfortable feeling. EKG was normal sinus with ST elevation in V3 through V6. Chest x-ray suspect elevation of the right hemidiaphragm. Patient was taken directly to the [employer] status post emergent heart catheterization finding significant disease in the LAD with 2 areas of significant disease in the mid LAD and sluggish flow without much antegrade flow in the distal portion. Circumflex and RCA are codominant vessels with minor diffuse disease. PDA branch of RCA has about 40% narrowing. Circumflex has minor irregularities. Filling pressures are slightly elevated and there was no gradient across aortic valve. Patient underwent PTCA and stenting of the mid LAD. He was then transferred to the intensive care unit as overflow for cardiac stepdown unit. He has been started on Effient, baby aspirin. 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 The patient is currently seen in the intensive care unit. He denies any chest pain or shortness of breath. Review of Systems Constitutional: Reports fatigue, Denies chills, Denies fever, Denies poor appetite, Denies weakness Ears, nose, mouth and throat: Denies dysphagia, Denies nasal congestion, Denies nasal discharge Cardiovascular: Reports chest pain, Reports shortness of breath Respiratory: Reports dyspnea, Denies excessive sputum, Denies hemoptysis, Denies home oxygen Gastrointestinal: Denies abdominal pain, Denies diarrhea, Denies nausea, Denies vomiting Musculoskeletal: Denies frequent falls, Denies gait dysfunction, Denies myalgias Integumentary: Denies pruritus, Denies rash, Denies wounds Neurological: Denies aphasia, Denies change in mentation, Denies change in speech, Denies numbness, Denies seizures, Denies weakness Psychiatric: Denies anxiety, Denies depression Past Medical History Past Medical History: Coronary Artery Disease (CAD), Hypertension, Myocardial Infarction ([place]) History of Any Multi-Drug Resistant Organisms: None Reported Past Surgical History: Heart Catheterization With Stent, Orthopedic Surgery Additional Past Surgical History / Comment(s): rt pointer finger surgery Past Anesthesia/Blood Transfusion Reactions: No Reported Reaction Additional Past Anesthesia/Blood Transfusion Reaction / Comment(s): no blood products to be given Past Psychological History: No Psychological Hx Reported Smoking Status: Never smoker Past Alcohol Use History: Occasional Additional Past Alcohol Use History / Comment(s): Patient is a life-long nonsmoker. He drinks 2 beers/day. He lives at home with his . Patient is self-employed as sewing repair. Past Drug Use History: None Reported - Past Family History Father Family Medical History: Asthma, Cancer, Deep Vein Thrombosis (DVT), Eye Disorder, GERD/Reflux, Hearing Disorder / Deafness, Hyperlipidemia, Hypertension, Musculoskeletal Disorder, Neurologic Disorder, Osteoarthritis (OA), Pneumonia, Prostate Disorder, Pulmonary Embolus, Respiratory Disorder, Rheumatoid Arthritis (RA), Sleep Apnea/CPAP/BIPAP Additional Family Medical History / Comment(s): Father has history of CAD, chronic back pain, OA, history of Parvez Sandra. Mother Family Medical History: Cancer, Chest Pain / Angina, Congestive Heart Failure (CHF), Coronary Artery Disease (CAD), Eye Disorder, Hyperlipidemia, Hypertension, Myocardial Infarction ([place]), Thyroid Disorder, Vascular Disorder Additional Family Medical History / Comment(s): Mother from kidney failure and she did not want to undergo dialysis. She had history of coronary artery disease with 7 stents. Brother(s) Additional Family Medical History / Comment(s): Patient has one brother with heart problems diagnosed at age 52. Patient does not have any sisters. Patient has 1 daughter believed to have no medical problems. He has had no contact with her in 10 years. Medications and Allergies Home Medications Medication Instructions Recorded Confirmed Type Losartan Potassium 100 mg PO HS 02/17/19 05/09/19 History Metoprolol Tartrate [Lopressor] 50 mg PO HS 02/17/19 05/09/19 History amLODIPine BESYLATE/BENAZEPRIL 1 cap PO DAILY 02/17/19 05/09/19 History [Lotrel 10-40 MG] Allergies Allergy/AdvReac Type Severity Reaction Status Date / Time bee venom protein (honey bee) Allergy Anaphylaxis Verified 05/09/19 11:20 fire ant Allergy Rash/Hives Verified 05/09/19 11:20 Physical Exam Vitals: Vital Signs Temp Pulse Resp BP Pulse Ox 05/10/19 08:00 98.6 F 93 14 130/78 95 05/10/19 06:00 81 16 118/91 96 05/10/19 05:00 85 16 151/102 96 05/10/19 04:00 98.4 F 82 10 L 136/89 93 L 05/10/19 03:00 80 12 134/68 94 L 05/10/19 02:00 89 17 131/76 94 L 05/10/19 01:00 87 18 121/63 95 05/10/19 00:05 81 18 94 L 05/10/19 00:00 98.1 F 81 17 150/79 95 05/09/19 23:00 86 5 L 171/96 97 05/09/19 22:00 92 20 162/96 96 05/09/19 21:00 93 4 L 164/90 96 05/09/19 20:30 89 17 154/78 97 05/09/19 20:00 98.1 F 96 15 149/83 05/09/19 19:30 96 19 145/81 05/09/19 19:00 93 16 167/81 05/09/19 18:30 97 16 155/81 05/09/19 18:00 95 16 152/83 05/09/19 17:30 89 16 152/99 96 05/09/19 17:00 89 14 148/84 97 05/09/19 16:30 88 16 147/76 96 05/09/19 16:00 98.2 F 87 16 142/87 96 05/09/19 15:45 92 14 137/86 05/09/19 15:30 87 14 145/80 05/09/19 15:15 83 18 142/78 96 05/09/19 15:00 84 16 131/81 97 05/09/19 14:45 87 12 136/75 97 05/09/19 14:30 81 16 131/75 98 05/09/19 14:15 84 12 140/79 97 05/09/19 14:00 77 16 134/81 97 05/09/19 13:45 79 12 125/77 97 05/09/19 13:30 75 14 121/74 97 05/09/19 13:15 80 16 131/74 96 05/09/19 13:05 98.1 F 86 16 131/74 98 05/09/19 11:03 98.7 F 86 18 168/115 100 Intake and Output 05/09/19 05/10/19 05/10/19 22:59 06:59 14:59 Intake Total 840 600 315 Output Total 0 Balance 840 600 315 Intake: Intake, IV Titration 600 600 75 Amount Sodium Chloride 0.9% 1, 600 600 75 000 ml @ 75 mls/hr IV . [id number] [facility] Rx#:[id number] Oral 240 240 Output: Urine 0 Other: Voiding Method Urinal Urinal Toilet # Voids 1 1 Weight 136.078 kg 130.2 kg Gen: This is a 53-year-old male. He is seen in the ICU and appears to be comfortable and in no acute distress. Family members at bedside.. HEENT: Head is atraumatic, normocephalic. Pupils equal, round. Sclerae is anicteric. NECK: Supple. No JVD. No lymphadenopathy. No thyromegaly. LUNGS: Clear to auscultation. No wheezes or rhonchi. No intercostal retractions. HEART: Regular rate and rhythm. No murmur. ABDOMEN: Soft. Bowel sounds are present. No masses. No tenderness. EXTREMITIES: No pedal edema. No calf tenderness. Dorsalis pedis +2 bilaterally. NEUROLOGICAL: Patient is awake, alert and oriented x3. Cranial nerves 2 through 12 are grossly intact. Results CBC & Chem 7: 05/10/19 05:08 05/10/19 05:08 Labs: Abnormal Lab Results - Last 24 Hours (Table) 05/09/19 05/09/19 05/09/19 Range/Units 11:19 11:19 13:26 Hgb (13.0-17.5) gm/dL Carbon Dioxide (22-30) mmol/L Glucose 104 H (74-99) mg/dL POC Glucose (mg/dL) 113 H (75-99) mg/dL Calcium 10.4 H (8.4-10.2) mg/dL Magnesium 2.5 H (1.6-2.3) mg/dL Total Creatine Kinase 207 H (55-170) U/L CK-MB (CK-2) 7.6 H (0.0-2.4) ng/mL Troponin I 0.641 H* (0.000-0.034) ng/mL Albumin 5.2 H (3.5-5.0) g/dL 05/09/19 05/10/19 05/10/19 Range/Units 17:47 05:08 05:08 Hgb 12.4 L (13.0-17.5) gm/dL Carbon Dioxide 21 L (22-30) mmol/L Glucose 122 H (74-99) mg/dL POC Glucose (mg/dL) (75-99) mg/dL Calcium (8.4-10.2) mg/dL Magnesium (1.6-2.3) mg/dL Total Creatine Kinase (55-170) U/L CK-MB (CK-2) (0.0-2.4) ng/mL Troponin I 14.000 H* (0.000-0.034) ng/mL Albumin (3.5-5.0) g/dL 05/10/19 Range/Units 05:08 Hgb (13.0-17.5) gm/dL Carbon Dioxide (22-30) mmol/L Glucose (74-99) mg/dL POC Glucose (mg/dL) (75-99) mg/dL Calcium (8.4-10.2) mg/dL Magnesium (1.6-2.3) mg/dL Total Creatine Kinase (55-170) U/L CK-MB (CK-2) (0.0-2.4) ng/mL Troponin I 6.180 H* (0.000-0.034) ng/mL Albumin (3.5-5.0) g/dL Thrombosis Risk Factor Assmnt - DVT/VTE Prophylaxis DVT/VTE Prophylaxis: Pharmacologic Prophylaxis ordered - Choose All That Apply Each Factor Represents 1 point: Acute [place], Age 41-60 years, Obesity (BMI >25) Thrombosis Risk Factor Assessment Total Risk Factor Score: 3 Thrombosis Risk Factor Assessment Level: Moderate Risk Assessment and Plan Plan: 1. ST elevated anterior lateral myocardial infarction status post heart catheterization, PTCA and stent of the LAD. Cardiology consult appreciated. Continue Effient, baby aspirin and Lopressor. Patient is unable take statins due to severe myopathy. 2. Hypertension. Continue losartan, Norvasc 5 mg at bedtime, Lopressor 50 kg daily. 3. Obstructive sleep apnea. Recommended patient follow-up for CPAP. 4. Regular alcohol intake with 2 beers per day. 5. Hyperlipidemia, unable to tolerate statins. Patient will be admitted to the hospital for a minimum of 2 night stay. Discharge plan: Return home tomorrow Impression and plan of care have been directed as dictated by the signing p lino. Sheyla Bryant nurse practitioner acting as scribe for signing physician.
--- NOTE | 2019-05-10 15:00 | P.PN ---
Subjective Progress Note Date: 05/10/19 this is a 53-year-old gentleman with history of hypertension, sleep apnea, who was admitted to the hospital with symptoms of midsternal chest pain and EKG changes size to acute coronary syndrome and possible myocardial infarction. Patient had a cardiac catheterization and was found to have lesion in the mid LAD. Patient had stent placement by Dr. MARY Palma. Patient has been doing well since the stent placement. Denies any chest pain or shortness of breath. Tolerating medication well. Apparently patient had a reaction to the statins and is not on any statins. We'll going to increase his activity. If stable, patient could be discharged home within 24 hours.his lab values showed a hemoglobin of 12.4 Normal electrolytes and creatinine. His troponin went up to maximum of 14. Objective - Vital Signs Vital signs: Vital Signs Temp 98.6 F 05/10/19 12:00 Pulse 75 05/10/19 12:00 Resp 16 05/10/19 12:00 BP 115/58 05/10/19 12:00 Pulse Ox 94 L 05/10/19 12:00 Intake & Output 05/09/19 05/10/19 05/10/19 18:59 06:59 18:59 Intake Total 1278.1 825 555 Output Total 850 0 Balance 428.1 825 555 Weight 136.078 kg 130.2 kg Intake: IV 513.1 Intake, IV Titration 525 825 75 Amount Sodium Chloride 0.9% 1, 525 825 75 000 ml @ 75 mls/hr IV . [id number] [facility] Rx#:[id number] Oral 240 480 Output: Urine 850 0 Other: Voiding Method Urinal Urinal Toilet # Voids 1 1 1 - Exam GENERAL EXAM: Patient is alert and oriented and doesn't appear to be in any acute distress HEENT: Normocephalic. Normal reaction of pupils, equal size, normal range of extraocular motion. No erythema or exudates in the throat. NECK: No masses, no nuchal rigidity. CHEST: No chest wall deformity. LUNGS: [Equal air entry with no crackles or wheeze.] HEART: [S1 and S2 normal with no audible mumurs or gallops. Regular rhythm, femorals equal on both sides..] ABDOMEN: No hepatosplenomegaly, normal bowel sounds, no guarding or rigidity. SKIN: No rashes CENTRAL NERVOUS SYSTEM: No focal deficits. EXTREMITIES: [No cyanosis, clubbing or edema Puncture site:This site is soft without any hematoma or bleeding - Labs CBC & Chem 7: 05/10/19 05:08 05/10/19 05:08 Labs: Abnormal Lab Results - Last 24 Hours (Table) 05/09/19 05/10/19 05/10/19 Range/Units 17:47 05:08 05:08 Hgb 12.4 L (13.0-17.5) gm/dL Carbon Dioxide 21 L (22-30) mmol/L Glucose 122 H (74-99) mg/dL Troponin I 14.000 H* (0.000-0.034) ng/mL 05/10/19 Range/Units 05:08 Hgb (13.0-17.5) gm/dL Carbon Dioxide (22-30) mmol/L Glucose (74-99) mg/dL Troponin I 6.180 H* (0.000-0.034) ng/mL Assessment and Plan (1) ST elevation myocardial infarction (STEMI) Current Visit: Yes Status: Acute Code(s): I21.3 - ST ELEVATION (STEMI) MYOCARDIAL INFARCTION OF [facility] SITE SNOMED Code(s): 36890231 (2) Essential hypertension Current Visit: Yes Status: Acute Code(s): I10 - ESSENTIAL (PRIMARY) HYPERTENSION SNOMED Code(s): 45503725 (3) Hypercholesterolemia Current Visit: Yes Status: Acute Code(s): E78.00 - PURE HYPERCHOLESTEROLEMIA, UNSPECIFIED SNOMED Code(s): 78537543 Plan: patient is critically stable. Hemodynamically stable Unfortunately, patient cannot take statins. We'll increase activity . Transfer to stepdown unit
--- NOTE | 2019-05-10 18:00 | ECHOF ---
Referral Reason:pain/shortness of breath/post procedure MEASUREMENTS -------- HEIGHT: 193.0 cm WEIGHT: 136.1 kg BP: 168/115 RVIDd: 3.2 cm (< 3.3) IVSd: 1.8 cm (0.6 - 1.1) LVIDd: 5.0 cm (3.9 - 5.3) LVPWd: 1.8 cm (0.6 - 1.1) IVSs: 2.6 cm LVIDs: 2.4 cm LVPWs: 2.7 cm LAESV Index (A-L): 19.86 ml/m Ao Diam: 3.8 cm (2.0 - 3.7) AV Cusp: 2.5 cm (1.5 - 2.6) LA Diam: 3.3 cm (2.7 - 3.8) MV EXCURSION: 17.961 mm (> 18.000) MV EF SLOPE: 81 mm/s (70 - 150) EPSS: 0.6 cm MV E Elie: 0.50 m/s MV DecT: 199 ms MV A Elie: 0.64 m/s MV E/A Ratio: 0.77 RAP: 5.00 mmHg RVSP: 28.51 mmHg FINDINGS -------- Sinus rhythm. This was a technically adequate study. The left ventricular size is normal. There is severe concentric left ventricular hypertrophy. Ove rall left ventricular systolic function is normal with, an EF between 60 - 65 %. The diastolic fill ing pattern indicates impaired relaxation 7.80. The right ventricle is normal in size and function. Normal LA size by volume 22+/-6 ml/m2. The right atrial size is normal. Interatrial and interventricular septum intact. The aortic valve is trileaflet and appears structurally normal. There is no evidence of aortic regu rgitation. There is no evidence of aortic stenosis. The mitral valve is normal. Mild tricuspid regurgitation present. There is no evidence of pulmonary hypertension. The right v entricular systolic pressure, as measured by Doppler, is 28.51mmHg. There is no pulmonic regurgitation present. The aortic root size is normal. The inferior vena cava is mildly dilated. There is no pericardial effusion. CONCLUSIONS -------- 1. Sinus rhythm. 2. This was a technically adequate study. 3. The left ventricular size is normal. 4. There is severe concentric left ventricular hypertrophy. 5. Overall left ventricular systolic function is normal with, an EF between 60 - 65 %. 6. The diastolic filling pattern indicates impaired relaxation 7.80.. 7. The right ventricle is normal in size and function. 8. Normal LA size by volume 22+/-6 ml/m2. 9. The right atrial size is normal. 10. Interatrial and interventricular septum intact. 11. The aortic valve is trileaflet and appears structurally normal. 12. There is no evidence of aortic regurgitation. 13. There is no evidence of aortic stenosis. 14. The mitral valve is normal. 15. Mild tricuspid regurgitation present. 16. There is no evidence of pulmonary hypertension. 17. The right ventricular systolic pressure, as measured by Doppler, is 28.51mmHg. 18. There is no pulmonic regurgitation present. 19. The aortic root size is normal. 20. The inferior vena cava is mildly dilated. 21. There is no pericardial effusion. [employer] SALES TECHNICIAN: Almaz Lay RDCS
[2019-05-10] MEDS: amLODIPine 5 MG TAB PO SCH (20:14)
[2019-05-10] MEDS: LOSARTAN 50 MG TAB PO SCH (20:14)
[2019-05-11 08:10] VITALS: TEMP 98.4
[2019-05-11] MEDS: PRASUGREL 10 MG TAB PO SCH (08:10)
[2019-05-11] MEDS: METOPROLOL TARTRATE 50 MG TAB PO SCH (08:10)
[2019-05-11] MEDS: ASPIRIN 81 MG PO SCH (08:10)
[2019-05-11] MEDS ORDERED: METOPROLOL TARTRATE 50 MG TAB PO SCH (09:00)
[2019-05-11] MEDS ORDERED: METOPROLOL TARTRATE 50 MG TAB PO STA (09:11)
--- NOTE | 2019-05-11 09:32 | P.PN ---
Subjective Progress Note Date: 05/11/19 this is a 53-year-old gentleman with history of hypertension, sleep apnea, who was admitted to the hospital with symptoms of midsternal chest pain and EKG changes size to acute coronary syndrome and possible myocardial infarction. Patient had a cardiac catheterization and was found to have lesion in the mid LAD. Patient had stent placement by Dr. MARY Palma. Patient has been doing well since the stent placement. Denies any chest pain or shortness of breath. Tolerating medication well. Apparently patient had a reaction to the statins and is not on any statins. We'll going to increase his activity. If stable, patient could be discharged home within 24 hours.his lab values showed a hemoglobin of 12.4 Normal electrolytes and creatinine. His troponin went up to maximum of 14. 05/11/2019: This is a 53-year-old gentleman with history of hypertension was admitted to the hospital with acute coronary syndrome and possible myocardial infarction. Had stent placement of the LAD. His troponin went up to 16 but came down suggestive of possible early reperfusion. His echo showed good LV function. His feeling better. No complaints of any chest pain or shortness of breath. His blood pressure is high. Pocket is also high. He is to take 100 mg of metoprolol. We'll going to give additional 50 mg of atenolol this morning. If his blood pressure and heart rate is controlled, patient could be discharged home. Follow-up with Dr. MARY Palma as an outpatient in one week Objective - Vital Signs Vital signs: Vital Signs Temp 98.4 F 05/11/19 08:00 Pulse 94 05/11/19 08:00 Resp 16 05/11/19 08:00 BP 156/88 05/11/19 08:00 Pulse Ox 94 L 05/11/19 08:00 Intake & Output 05/10/19 05/11/19 05/11/19 18:59 06:59 18:59 Intake Total 655 480 Output Total 0 Balance 655 480 Weight 130.1 kg Intake: Intake, IV Titration 75 Amount Sodium Chloride 0.9% 1, 75 000 ml @ 75 mls/hr IV . [id number] JESUS Rx#:[id number] Oral 580 480 Output: Urine 0 Other: Voiding Method Toilet Toilet Toilet # Voids 1 1 1 - Exam GENERAL EXAM: Patient is alert and oriented and doesn't appear to be in any acute distress HEENT: Normocephalic. Normal reaction of pupils, equal size, normal range of extraocular motion. No erythema or exudates in the throat. NECK: No masses, no nuchal rigidity. CHEST: No chest wall deformity. LUNGS: [Equal air entry with no crackles or wheeze.] HEART: [S1 and S2 normal with no audible mumurs or gallops. Regular rhythm, femorals equal on both sides..] ABDOMEN: No hepatosplenomegaly, normal bowel sounds, no guarding or rigidity. SKIN: No rashes CENTRAL NERVOUS SYSTEM: No focal deficits. EXTREMITIES: [No cyanosis, clubbing or edema Puncture site:This site is soft without any hematoma or bleeding - Labs CBC & Chem 7: 05/10/19 05:08 05/10/19 05:08 Assessment and Plan (1) ST elevation myocardial infarction (STEMI) Current Visit: Yes Status: Acute Code(s): I21.3 - ST ELEVATION (STEMI) MYOCARDIAL INFARCTION OF UNSP SITE SNOMED Code(s): 96033671 (2) Essential hypertension Current Visit: Yes Status: Acute Code(s): I10 - ESSENTIAL (PRIMARY) HYPERTENSION SNOMED Code(s): 61774893 (3) Hypercholesterolemia Current Visit: Yes Status: Acute Code(s): E78.00 - PURE HYPERCHOLESTEROLEMIA, UNSPECIFIED SNOMED Code(s): 74173488 Plan: Patient is doing well. His blood pressure is slightly high and heart rate is high. I'm going to increase the dose of beta constantino. Possible discharge later today. Follow-up with Dr. MARY Palma
[2019-05-11 11:09] VITALS: BP 127/78; PULSE 71; RESP 18
--- NOTE | 2019-05-11 12:11 | P.DS ---
Providers Date of admission: 05/09/19 11:35 Expected date of discharge: 05/11/19 Attending physician: Arlet Palma Consults: 05/09/19 12:57 Consult Physician Routine Consulting Provider: [facility] Consult Reason/Comments: Post Interventional patient Do you want consulting provider notified?: Already Contacted Primary care physician: Mike Siegel [facility] Course: This is a 53-year-old male patient of Dr. Siegel with past medical history of hypertension, hyperlipidemia, possible sleep apnea. Patient gives history of having sleep study done 2 but has not received report. Patient presented to the hospital with midsternal chest pressure and heaviness that started hour before arrival along with diaphoresis. Onset while sitting and 8 type that did not go away. He also complains of left arm uncomfortable feeling. EKG was normal sinus with ST elevation in V3 through V6. Chest x-ray suspect elevation of the right hemidiaphragm. Patient was taken directly to the [facility] status post emergent heart catheterization finding significant disease in the LAD with 2 areas of significant disease in the mid LAD and sluggish flow without much antegrade flow in the distal portion. Circumflex and RCA are codominant vessels with minor diffuse disease. PDA branch of RCA has about 40% narrowing. Circumflex has minor irregularities. Filling pressures are slightly elevated and there was no gradient across aortic valve. Patient underwent PTCA and stenting of the mid LAD. He was then transferred to the intensive care unit as overflow for cardiac stepdown unit. He has been started on Effient, baby aspirin. 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 The patient is currently seen in the intensive care unit. He denies any chest pain or shortness of breath. 05/11: Blood pressures are running high this morning and patient was provided an extra dose of Lopressor. We are planning to monitor the patient and once this is stabilized, he is clear for discharge. Cardiology has evaluated and cleared for discharge his lungs were pressures improved. Patient denies having any chest pain, shortness of breath, lightheadedness or dizziness. Discharge diagnoses: 1. Acute ST elevated anterior lateral myocardial infarction status post heart catheterization, PTCA and stent of the LAD. 2. Hypertension. 3. Obstructive sleep apnea. 4. Regular alcohol intake with 2 beers per day. 5. Hyperlipidemia, unable to tolerate statins. Discharge plan: Return home Impression and plan of care have been directed as dictated by the signing physician. Sheyla Bryant nurse practitioner acting as scribe for signing physician. Patient Condition at Discharge: Good Plan - Discharge Summary New Discharge Prescriptions: New Aspirin 81 mg PO DAILY chew Prasugrel [Effient] 10 mg PO DAILY #30 tab Metoprolol Tartrate [Lopressor] 50 mg PO BID #60 tab Nitroglycerin Sl Tabs [Nitrostat] 0.4 mg SUBLINGUAL Q5M PRN #25 tab PRN Reason: Chest Pain amLODIPine [Norvasc] 5 mg PO HS #30 tab Continue Losartan Potassium 100 mg PO HS Discontinued amLODIPine BESYLATE/BENAZEPRIL [Lotrel 10-40 MG] 1 cap PO DAILY Metoprolol Tartrate [Lopressor] 50 mg PO HS Discharge Medication List Losartan Potassium 100 mg PO HS 02/17/19 [History] Aspirin 81 mg PO DAILY chew 05/11/19 [Rx] Metoprolol Tartrate [Lopressor] 50 mg PO BID #60 tab 05/11/19 [Rx] Nitroglycerin Sl Tabs [Nitrostat] 0.4 mg SUBLINGUAL Q5M PRN #25 tab 05/11/19 [Rx] Prasugrel [Effient] 10 mg PO DAILY #30 tab 05/11/19 [Rx] amLODIPine [Norvasc] 5 mg PO HS #30 tab 05/11/19 [Rx] Follow up Appointment(s)/Referral(s): Arlet Palma MD [STAFF PHYSICIAN] - 1 Week Mike Siegel DO [Primary Care Provider] - 1 Week Patient Instructions/Handouts: Heart Attack (DC), Coronary Intravascular Stent Placement (DC) Discharge Disposition: HOME SELF-CARE
== END 2019-05-11 12:21 | disposition home or self-care (01) | DRG 247 ==
LOC: EC 10:57 → 2SICU 11:35
PROVIDERS: ADMIT Internal Medicine; ATTEND Internal Medicine Interventional Cardiology
PROC: B2111ZZ Fluoroscopy of Multiple Coronary Arteries using Low Osmolar Contrast (ICD-10-PCS; 2019-05-09)
PROC: 027034Z Dilation of Coronary Artery, One Artery with Drug-eluting Intraluminal Device, Percutaneous Approach (ICD-10-PCS; principal; 2019-05-09 11:30)
PROC: 4A023N7 Measurement of Cardiac Sampling and Pressure, Left Heart, Percutaneous Approach (ICD-10-PCS; 2019-05-09 11:30)
DX: I21.09 ST elevation (STEMI) myocardial infarction involving other coronary artery of anterior wall (principal); I25.10 Atherosclerotic heart disease of native coronary artery without angina pectoris; E78.00 Pure hypercholesterolemia, unspecified; I10 Essential (primary) hypertension; E66.9 Obesity, unspecified; Z68.34 Body mass index [BMI] 34.0-34.9, adult; G47.33 Obstructive sleep apnea (adult) (pediatric); E78.5 Hyperlipidemia, unspecified; I25.2 Old myocardial infarction; Z95.5 Presence of coronary angioplasty implant and graft; Z79.899 Other long term (current) drug therapy; Z91.030 Bee allergy status; Z82.49 Family history of ischemic heart disease and other diseases of the circulatory system; Z82.5 Family history of asthma and other chronic lower respiratory diseases
CPT/HCPCS: 36415; 71045; 80048; 80053; 82550; 82553; 83735; 83880; 84484; 85025; 85379; 85610; 85730; 93005; 93306; 93458; 96374; 99291; C1874

== ENCOUNTER → 2021-08-31 | Outpatient (CLI) | payer OTHER ==
[2021-08-31 15:18] LABS: HCT 41.1 % (39.6-50.0); HGB 13.3 g/dL (13.0-17.0); MCH 26.9 pg (27.0-32.0); MCHC 32.4 g/dL (32.0-37.0); MCV 83.2 fL (80.0-97.0); Mean Platelet Volume 10.2 fL (9.5-12.2); Platelet Count 337 X 10*3/uL (140-440); RBC 4.94 X 10*6/uL (4.40-5.60)
[2021-08-31 16:36] LABS: African American GFR (CKD) 94.1 (60.0-200.0); Albumin 4.9 g/dL (3.8-4.9); Albumin/Globulin Ratio 1.98 (1.60-3.17); Anion Gap 15.1 mmol/L (4.00-12.00); Blood Urea Nitrogen 10.2 mg/dL (9.0-27.0); Calcium 9.4 mg/dL (8.7-10.3); Carbon Dioxide 21.8 mmol/L (21.6-31.8); Chol/HDL Ratio 6.93 Ratio; Globulin 2.5 g/dL (1.6-3.3); HDL Cholesterol 36.5 mg/dL (40.00-60.00); LDL Cholesterol,Calculated 149.9 mg/dL (0.0-131.0); Non-African American GFR(CKD) 81.2 (60.0-200.0); Potassium 4.3 mmol/L (3.5-5.5); Prostate Specific Antigen 5.2 ng/mL (0.00-3.50); T4, Free (Free Thyroxine) 1.11 ng/dL (0.800-1.800); Total Bilirubin 0.3 mg/dL (0.30-1.20); Total Protein 7.4 g/dL (6.2-8.2); VLDL Calculation 66.6 mg/dL (5.00-40.00)
== END | disposition home or self-care (01) ==
LOC: LABWHC1 09:24
PROVIDERS: ATTEND Family Medicine
DX: E03.9 Hypothyroidism, unspecified (principal); I25.10 Atherosclerotic heart disease of native coronary artery without angina pectoris; E11.9 Type 2 diabetes mellitus without complications; M54.9 Dorsalgia, unspecified; E78.1 Pure hyperglyceridemia; E78.5 Hyperlipidemia, unspecified
CPT/HCPCS: 36415; 80053; 80061; 82306; 83036; 84153; 84439; 84443; 84481; 85027; 86376

== ENCOUNTER → 2022-09-25 | Outpatient (CLI) | payer OTHER ==
--- NOTE | 2022-09-25 15:01 | US ---
EXAMINATION TYPE: US kidneys/renal and bladder DATE OF EXAM: 09/25/2022 COMPARISON: US CLINICAL HISTORY: R31.1 BENIGN ESSENTIAL MICROSCOPIC HEMATURIA. EXAM MEASUREMENTS: Right Kidney: 12.4 x 5.3 x 6.2 cm Left Kidney: 12.0 x 5.3 x 6.0 cm Right Kidney: 0.4mm hyperechoic foci, probable stone measuring 4mm Left Kidney: large stone measuring 0.9 x 0.8 x 0.9cm, multiple scattered echogenic foci probable smal l stones Bladder: wall thickening at 0.7cm Incidental finding of hepatomegaly at 20cm There is no evidence for hydronephrosis at this point in time. No masses are identified. The urinar y bladder is anechoic. Bilateral ureteral jets are seen. IMPRESSION: 1. Bilateral nephrolithiasis. 2. Urinary bladder wall thickening.
== END | disposition home or self-care (01) ==
LOC: RADUSWWP 14:07
PROVIDERS: ATTEND Urology
DX: N20.0 Calculus of kidney (principal); N32.89 Other specified disorders of bladder
CPT/HCPCS: 76770